=== PATIENT | female | born 1980 | race Caucasian/White ===

== ENCOUNTER 2022-12-05 06:47 | Emergency (ER) | payer MEDICAID, SELFPAY ==
[2022-12-05 06:56] VITALS: BP 113/78; PULSE 99; RESP 18; TEMP 36.4; O2SAT 100
--- NOTE | 2022-12-05 07:09 | W.ED.SKABFB ---
HPI - Skin/Abscess/Foreign Bdy General: Chief complaint: General Medical Stated complaint: congestion, nose swelling Time Seen by Provider: 12/05/22 07:00 Source: patient Mode of arrival: ambulatory Limitations: no limitations History of Present Illness: Patient is a nice 42-year-old female presents to ED today with complaints of redness and swelling to her nose over the past 1 to 2 days. Patient states a few days ago she began having some clear rhinorrhea that she attributed to allergies/sinusitis. She states she has been treating with steam showers. She noticed few sores to her bilateral inner nares. She states she was using a Q-tip to keep the nares moist. She believes that one of the source has become infected. She states yesterday morning she began noticing the redness and swelling. She denies headache or fevers. No visual changes. Denies purulent nasal drainage. MD complaint: rash, discoloration and other (nasal cellulitis ) Onset (ago): day(s) Tetanus up to date: yes Location: face (nose) Severity: mild Pain Consistency: constant Relieving factors: none Exacerbating factors: none Associated symptoms: Reports no associated symptoms; Deny chills, fever(s), nausea or vomiting Treatments prior to arrival: none Review of Systems Const: Denies: fever(s), chills, body aches, fatigue or malaise Eyes: Denies: change in vision, blurry vision, photophobia, floaters or seeing flashes ENMT: Reports: sinus pain (localized to nose); Denies: throat pain, odynophagia, ear or mastoid pain, epistaxis or post nasal drip Card: Denies: chest pain Resp: Denies: dyspnea GI: Denies: nausea or vomiting Musc: Denies: neck pain Neuro: Denies: headache(s), dizziness or confusion Physical Exam Const: COMMON NORMALS: no acute distress, average body habitus, patient oriented x3, no limitations, healthy appearing, alert and well nourished GENERAL APPEARANCE: cooperative ORIENTATION/CONSCIOUSNESS: Yes awake, Yes oriented to person, Yes oriented to place and Yes oriented to time HENMT: COMMON NORMALS: normocephalic and atraumatic HEAD & SCALP: normal to inspection, normocephalic and atraumatic FACE & SINUS: sinuses nontender and other (nasal swelling, tenderness, erythema consistent with cellulitis ) NOSE: Normal septum present and Other nasal findings present (bilateral scabbed sores to internal nares; cellulitis localized to nose) Eye: GENERAL EYE: appearance normal, both eyes and all related structures Neck/C-Spine: COMMON NORMALS: full ROM, no lymphadenopathy and no meningeal signs GENERAL: Yes normal visual inspection, No anterior neck swelling and No submandibular swelling Resp: COMMON NORMALS: normal respiratory effort Cardio: COMMON NORMALS: regular rate and regular rhythm RATE: regular rate RHYTHM: regular rhythm Neuro: LIU COMA SCALE: document GCS findings [place] coma scale eye opening: Spontaneous Liu coma scale verbal response: Orientated [place] coma scale motor response: Obey commands [place] coma scale total score: 15 COMMON NORMALS: patient oriented x3, CN's II-XII intact bilaterally, moves all extremities, no focal motor deficits and no sensory deficits noted SENSORIUM/ORIENTATION: Yes alert, Yes oriented to person, Yes oriented to place and Yes oriented to time MENINGEAL SIGNS: Yes no meningeal signs Course Vital Signs: Vital signs: Vital Signs Temperature 97.6 F 12/05/22 06:56 Pulse Rate 99 12/05/22 06:56 Respiratory Rate 18 12/05/22 06:56 Blood Pressure 113/78 12/05/22 06:56 Pulse Oximetry 100 12/05/22 06:56 Oxygen Delivery Me thod 12/05/22 06:56 MDM - Skin/Abscess/Foreign Bdy Medicial Decision Making Patient with mild nasal cellulitis at this time. Will place on oral abx and recommend close obs with PCP as location of infection has the potential for spread and rarely septic cavernous thrombosis. She has no DAVID/fevers/visual changes. Strict return to ED precautions given until she is able to see PCP. Discharge Plan Discharge Patient Disposition: Home Clinical Impression: Cellulitis of external nose Condition: Stable Prescriptions: New Bactrim DS 800-160 mg tablet 1 tab PO BID 7 Days Qty: 14 0RF Discharge Orders: Discharge ED (Routine); Ordered 12/05/22 Ordered By: Vickie Naranjo Referrals: Ksenia Oakes MOLD WASHER [Primary Care Provider] - Activity Restrictions/Additional Instructions: As we discussed fill your antibiotics and start them immediately. You need to follow-up with primary care early to mid this week for reevaluation. You need to return to the emergency department for worsening swelling, redness, severe headache, visual changes, fevers greater than 100.4, or any other concerns you may have. I hope you begin to feel better soon. Coding Level of Care Code ED Clinical Care Manager for Rebecca Monroe
[2022-12-05 07:49] VITALS: PULSE 86; RESP 16; O2SAT 100
== END 2022-12-05 07:50 | disposition home or self-care (01) ==
PROVIDERS: Emergency Provider Physician Assistant; PCP Nurse Practitioner Family
DX: J34.0 Abscess, furuncle and carbuncle of nose (principal)
CPT/HCPCS: 99283

== ENCOUNTER 2023-03-16 09:40 | Outpatient (CLI) | payer MEDICAID, SELFPAY ==
--- NOTE | 2023-03-16 10:12 | XRR_ITS ---
PROCEDURE INFORMATION: Exam: XR Thoracic Spine Exam date and time: 03/16/2023 10:17 AM Age: 42 years old Clinical indication: Pain in thoracic spine; Additional info: Back pain, thoracic region TECHNIQUE: Imaging protocol: Radiologic exam of the thoracic spine. Views: 3 views. COMPARISON: No relevant prior studies available. FINDINGS: Bones/joints: Thoracic curvature and alignment is unremarkable. No fracture or spondylolisthesis. Pedicles are intact. Disc heights are maintained. No significant degenerative changes detected. Soft tissues: Paraspinal soft tissues are unremarkable. XR/XR thoracic spine 3V* [id number] IMPRESSION: Normal thoracic spine.
== END 2023-03-16 09:41 | disposition home or self-care (01) ==
PROVIDERS: PCP Nurse Practitioner Family; Visit Provider Nurse Practitioner Family
DX: M54.6 Pain in thoracic spine (principal)
CPT/HCPCS: 72072

== ENCOUNTER 2023-06-29 14:01 | Emergency (ER) | payer MEDICAID, SELFPAY ==
[2023-06-29 14:24] VITALS: BP 111/67; PULSE 70; RESP 16; TEMP 36.8; O2SAT 100; BMI 17.6
[2023-06-29 14:27] VITALS: BP 104/68; PULSE 65; O2SAT 97
[2023-06-29 15:04] LABS: Basophils % 0.5 %; Eosinophils # 0.1 10^3/uL (0.0-0.8); Eosinophils % 1.1 %; Hematocrit 37.5 % (36-47); Lymphocytes # 2.1 10^3/uL (0.8-4.8); Lymphocytes % 32.5 %; Mean Corpuscular HGB Conc 33.3 g/dL (30-55); Mean Corpuscular Hemoglobin 30.9 pg (27-33); Mean Corpuscular Volume 92.6 fl (85-98); Mean Platelet Volume 10.8 fL (7.4-10.4); Monocytes # 0.5 10^3/uL (0.2-0.9); Neutrophils # 3.77 10^3/uL (1.8-7.7); Neutrophils % 58.6 %; Nucleated Red Blood Cells % 0 %; Platelet Count 161 10^3/cmm (157-399); Red Blood Count 4.05 10^6/uL (3.85-5.65); Red Cell Distribution Width 12.3 % (12.1-15.1); White Blood Count 6.43 10^3/uL (3.29-11.43)
--- NOTE | 2023-06-29 15:04 | ED_ITS ---
HPI - Female Genitourinary General: Chief complaint: Urogenital-Female Stated complaint: back pain left side Time Seen by Provider: 06/29/23 14:46 Source: patient Mode of arrival: ambulatory Limitations: no limitations History of Present Illness: Patient is a 43-year-old female presents to ED today with a complaint of left back pain and urinary symptoms. She states 2 to 3 days ago she began noticing fairly acute onset left flank pain. She states pain was unresponsive to OTC analgesics. She states since that time pain has not moved inferiorly and seems to wrap around into her abdomen. She now complains of urinary urgency/frequency and small volume voids. She states she does have a history of UTIs but has never had a kidney infection or kidney/ureter stone. She has not been running fevers. She has felt nauseous secondary to the pain but has not had any episodes of emesis. Normal bowel movements. MD elicited complaint: back pain Onset (ago): day(s) Severity: moderate Quality of pain: sharp Consistency: constant Vaginal discharge: none Vaginal bleeding: none Urinary symptoms: Flank Pain and Frequency Exacerbating factors: none Relieving factors: none Associated symptoms: Reports nausea; Deny abdominal pain or headache(s) Treatment prior to arrival: none Patient : No Review of Systems Const: Denies: fever(s), chills, body aches, fatigue or malaise Card: Denies: chest pain Resp: Denies: dyspnea GI: Reports: nausea; Denies: abdominal pain, vomiting, diarrhea, hematochezia or melena : Reports: flank pain, urinary frequency, urinary urgency and urinary hesitancy; Denies: difficulty voiding, dysuria, hematuria or pelvic pain Musc: Reports: back pain (L flank pain); Denies: neck pain, extremity pain, extremity swelling or joint pain Skin/Breast: Denies: rash Neuro: Denies: headache(s), numbness in extremities, weakness in extremities, sensory changes or dizziness Physical Exam Const: COMMON NORMALS: no acute distress, patient oriented x3, no limitations, alert and well nourished GENERAL APPEARANCE: cooperative NUTRITIONAL APPEARANCE: thin ORIENTATION/CONSCIOUSNESS: Yes awake, Yes oriented to person, Yes oriented to place and Yes oriented to time Resp: COMMON NORMALS: normal respiratory effort and clear to auscultation bilaterally AUSCULTATION: clear to auscultation bilaterally Cardio: COMMON NORMALS: regular rate and regular rhythm RATE: regular rate RHYTHM: regular rhythm GI: COMMON NORMALS: Normal to inspection, nondistended, normoactive bowel sounds present, Soft to palpation, No hepatosplenomegaly present and no masses INSPECTION: Yes normal to inspection PALPATION: Yes Soft to palpation, Yes Tenderness to palpation present (GI) (mild L sided abdominal pain), No Guarding due to palpation present (GI), No Rigid due to palpation and Yes No hepatosplenomegaly present : BLADDER/KIDNEY EXAM: Yes CVA tenderness on the left Back/Pelvis: COMMON NORMALS: thoracic and lumbar spine normal to inspection, no thoracic nor lumbar tenderness and thoraco-lumbar ROM normal GENERAL BACK: Yes CVA tenderness Extremity: COMMON NORMALS: normal to inspection GENERAL: Yes normal exam except as noted Neuro: LIU COMA SCALE: document GCS findings [place] coma scale eye opening: Spontaneous [place] coma scale verbal response: Orientated [place] coma scale motor response: Obey commands [place] coma scale total score: 15 COMMON NORMALS: patient oriented x3, moves all extremities, no focal motor deficits and no sensory deficits noted SENSORIUM/ORIENTATION: Yes alert, Yes oriented to person, Yes oriented to place and Yes oriented to time Skin: TRAUMA: no lacerations or abrasions Course Vital Signs: Vital signs: Vital Signs Temperature 98.3 F 06/29/23 14:24 Pulse Rate 55 L 06/29/23 17:08 Respiratory Rate 16 06/29/23 14:24 Blood Pressure 118/70 06/29/23 17:08 Pulse Oximetry 98 06/29/23 17:08 Oxygen Delivery Me thod Room Air 06/29/23 14:24 MDM - Female Medical Decision Making Based on patient's history and physical exam I suspect possible ureter calculi although I guess pyelo could be a possibility. CT renal scan obtained which is essentially normal. Personal interpretation does show a small calculi in her bladder which I feel she most likely recently passed. Her vital signs are stable. Blood work is unremarkable. UA showing 2+ blood. Somewhat contaminated specimen. Will go ahead and place on abx for possibility of a hemorrhagic cystitis. Recommend follow up with PCP later this week for re- evaluation. Lab Data 06/29/23 14:55 06/29/23 14:55 Radiology Impressions Abdomen/Pelvis CT 06/29/23 16:09 IMPRESSION: 1. Limited noncontrast examination without CT evidence of acute intra-abdominal or pelvic pathology. 2. Additional findings, as above. Laboratory Results WBC 6.43 10^3/uL (3.29-11.43) 06/29/23 14:55 RBC 4.05 10^6/uL (3.85-5.65) 06/29/23 14:55 Hgb 12.50 g/dL (11.27-16.99) 06/29/23 14:55 Hct 37.5 % (36-47) 06/29/23 14:55 MCV 92.6 fl (85-98) 06/29/23 14:55 MCH 30.9 pg (27-33) 06/29/23 14:55 MCHC 33.3 g/dL (30-55) 06/29/23 14:55 RDW 12.3 % (12.1-15.1) 06/29/23 14:55 Plt Count 161 10^3/cmm (157-399) 06/29/23 14:55 MPV 10.8 fL (7.4-10.4) H 06/29/23 14:55 Neut % (Auto) 58.6 % 06/29/23 14:55 Lymph % (Auto) 32.5 % 06/29/23 14:55 [place] % (Auto) 7.0 % 06/29/23 14:55 Eos % (Auto) 1.1 % 06/29/23 14:55 Baso % (Auto) 0.5 % 06/29/23 14:55 Neut # (Auto) 3.77 10^3/uL (1.8-7.7) 06/29/23 14:55 Lymph # (Auto) 2.1 10^3/uL (0.8-4.8) 06/29/23 14:55 [place] # (Auto) 0.5 10^3/uL (0.2-0.9) 06/29/23 14:55 Eos # (Auto) 0.1 10^3/uL (0.0-0.8) 06/29/23 14:55 Baso # (Auto) 0.0 10^3/uL (0.0-0.1) 06/29/23 14:55 Nucleated RBC % (auto) 0 % 06/29/23 14:55 Nucleated RBCs # 0.0 /100WBC 06/29/23 14:55 Sodium 139 mmol/L (136-145) 06/29/23 14:55 Potassium 3.7 mmol/L (3.5-5.1) 06/29/23 14:55 Chloride 105 mmol/L (98-107) 06/29/23 14:55 Carbon Dioxide 29 mmol/L (22-29) 06/29/23 14:55 Anion Gap 8.7 (5-19) 06/29/23 14:55 BUN 8 mg/dL (6-20) 06/29/23 14:55 Creatinine 0.6 mg/dL (0.5-0.9) 06/29/23 14:55 GFR Calculation 109.1 mL/min (90-130) 06/29/23 14:55 Glucose 77 mg/dL (65-115) 06/29/23 14:55 Calculated Osmolality 285 mOsm/kg (285-295) 06/29/23 14:55 Calcium 9.0 mg/dL (8.5-10.5) 06/29/23 14:55 Total Bilirubin 0.3 mg/dL (0.15-1.2) 06/29/23 14:55 AST 13 U/L (0-32) 06/29/23 14:55 ALT 8 U/L (0-33) 06/29/23 14:55 Alkaline Phosphatase 50 U/L (35-105) 06/29/23 14:55 Total Protein 6.1 g/dL (6.6-8.7) L 06/29/23 14:55 Albumin 4.2 g/dL (3.5-5.2) 06/29/23 14:55 Globulin 1.9 g/dL (1.3-4.6) 06/29/23 14:55 HCG, Qual Negative (Negative) 06/29/23 14:55 Urine Color Light yellow (Yellow) 06/29/23 14:30 Urine Appearance Clear (CLEAR) 06/29/23 14:30 Urine pH 7 (5-7) 06/29/23 14:30 Ur Specific [place] 1.010 (1.005-1.030) 06/29/23 14:30 Urine Protein Neg (Negative) 06/29/23 14:30 Urine Glucose (UA) Norm (Normal) 06/29/23 14:30 Urine Ketones Negative (Negative) 06/29/23 14:30 Urine Blood 2+ (Negative) H 06/29/23 14:30 Urine Nitrate Negative (Negative) 06/29/23 14:30 Urine Bilirubin Neg (Negative) 06/29/23 14:30 Urine Urobilinogen Norm mg/dL (Negative) 06/29/23 14:30 Ur Leukocyte Esterase Negative (Negative) 06/29/23 14:30 Urine RBC 0-4 /hpf (0-2) H 06/29/23 14:30 Urine WBC 0-4 /hpf (0-5) H 06/29/23 14:30 Ur Squamous Epith Cells 5-10 /hpf (0-5) H 06/29/23 14:30 Amorphous Sediment Not Reportable 06/29/23 14:30 Urine Bacteria Trace /hpf (NONE) 06/29/23 14:30 Urine Mucus None /hpf 06/29/23 14:30 All radiology interpretation(s) finalized by discharge Discharge Plan Discharge Patient Disposition: Home Clinical Impression: Left ureteral stone Condition: Stable Prescriptions: New Bactrim DS 800-160 mg tablet 1 tab PO BID 7 Days Qty: 14 0RF No Action ibuprofen 200 mg Capsule 400 mg PO Q6H PRN (Reason: Pain) Aleve 220 mg Capsule 440 mg PO DAILY PRN (Reason: Pain) Discharge Orders: Discharge ED (Routine); Ordered 06/29/23 Ordered By: Vickie Naranjo Referrals: Ksenia Oakes FNP [Primary Care Provider] - Coding Level of Care Code ED Network Planner for Rebecca Monroe
[2023-06-29] MEDS: ondansetron 2 mg/ML SDV 2 mL 4 MG IVP (15:20)
[2023-06-29] MEDS: ketorolac 60 mg/2 mL INJ 30 MG IVP (15:20)
[2023-06-29 15:25] LABS: HCG, Serum Qual Negative (Negative)
[2023-06-29 15:29] LABS: Alanine Aminotransferase 8 U/L (0-33); Albumin Level 4.2 g/dL (3.5-5.2); Alkaline Phosphatase 50 U/L (35-105); Anion Gap 8.7 (5-19); Aspartate Amino Transferase 13 U/L (0-32); Blood Urea Nitrogen 8 mg/dL (6-20); Carbon Dioxide 29 mmol/L (22-29); Chloride 105 mmol/L (98-107); Globulin 1.9 g/dL (1.3-4.6); Glomerular Filtration Rate 109.1 mL/min (90-130); Glucose 77 mg/dL (65-115); Osmolality Calculated 285 mOsm/kg (285-295); Potassium 3.7 mmol/L (3.5-5.1); Sodium 139 mmol/L (136-145); Total Bilirubin 0.3 mg/dL (0.15-1.2); Total Protein 6.1 g/dL (6.6-8.7)
[2023-06-29 16:05] LABS: Add Urine Microscopic? YES; Bilirubin Urine Neg (Negative); Blood Urine 2+ (Negative); Glucose Urine UA Norm (Normal); Ketones Urine Negative (Negative); Leukocyte Esterase Urine Negative (Negative); Nitrate Urine Negative (Negative); Protein Urine Neg (Negative); Urine Appearance Clear (CLEAR); Urine Color Light yellow (Yellow); Urobilinogen Urine Norm (Negative); pH Urine 7 (5-7)
--- NOTE | 2023-06-29 16:09 | CTR_ITS ---
PROCEDURE INFORMATION: Exam: CT Abdomen And Pelvis Without Contrast Exam date and time: 06/29/2023 4:20 PM Age: 43 years old Clinical indication: Abdominal pain; Flank; Left; Prior surgery; Surgery date: 6+ months; Surgery type: Appy, gb, hyst; Additional info: L flank pain, urinary symptoms TECHNIQUE: Imaging protocol: Computed tomography of the abdomen and pelvis without contrast. Axial, coronal and sagittal reformatted images were created and reviewed. REPORTING DATA: Count of CT and Cardiac NM exams in prior 12 months: This patient has received 0 known CTs and 0 known cardiac nuclear medicine studies in the 12 months prior to the current study. COMPARISON: CR XR thoracic spine 3V* [id number] 03/16/2023 10:17 AM RADIATION DOSE METRICS: Total DLP (mGy-cm): 335 FINDINGS: Liver: Unremarkable. Gallbladder and bile ducts: Status post cholecystectomy. No biliary ductal dilatation. Pancreas: Unremarkable. Spleen: Unremarkable. Adrenal glands: Normal. No mass. Kidneys and ureters: No mass. No radiodense calculi. No hydronephrosis. Stomach and bowel: Moderate amount of retained stool in the colon. No obstruction. No bowel wall thickening. No pneumatosis. Appendix: Status post appendectomy by history. Intraperitoneal space: No free fluid. No organized fluid collection. No free air. Vasculature: Mild atherosclerotic disease. No aneurysm. Lymph nodes: No pathologically enlarged lymph nodes. Urinary bladder: Unremarkable as visualized. Reproductive: Status post hysterectomy. Bones/joints: No acute osseous abnormality. Soft tissues: Unremarkable. CT/CT kidney stone [id number] IMPRESSION: 1. Limited noncontrast examination without CT evidence of acute intra-abdominal or pelvic pathology. 2. Additional findings, as above.
[2023-06-29 16:10] LABS: Add Urine Culture? No; Bacteria Urine TRACE /hpf; RBC Urine 0-4 /hpf (0-2); WBC Urine 0-4 /hpf (0-5)
[2023-06-29 17:08] VITALS: BP 118/70; PULSE 55; O2SAT 98
== END 2023-06-29 17:09 | disposition home or self-care (01) ==
PROVIDERS: Emergency Medicine; Emergency Provider Physician Assistant; PCP Nurse Practitioner Family
DX: N20.1 Calculus of ureter (principal)
CPT/HCPCS: 36415; 74176; 80053; 81001; 84703; 85025; 96374; 96375; 99285; J1885; J2405

== ENCOUNTER → 2023-08-19 09:39 | Outpatient (BNVA) | payer MEDICAID, SELFPAY | PROVIDERS: PCP Nurse Practitioner Family; Visit Provider Nurse Practitioner Family | DX: M54.9 Dorsalgia, unspecified (principal) | CPT/HCPCS: 81000 ==

== ENCOUNTER 2023-12-05 17:07 | Emergency (ER) | payer MEDICAID, SELFPAY ==
--- NOTE | 2023-12-05 17:09 | XRR_ITS ---
PROCEDURE INFORMATION: Exam: XR Chest Exam date and time: 12/05/2023 5:36 PM Age: 43 years old Clinical indication: Pain; Chest pressure; Additional info: Cp TECHNIQUE: Imaging protocol: Radiologic exam of the chest. Views: 1 view. COMPARISON: CT kidney stone [id number] 06/29/2023 4:20 PM FINDINGS: Lungs: No focal consolidation. Left basilar airspace opacities raising the question of developing pneumonia. There is an 18 mm nodular opacity in this region, possibly a nipple shadow. Pleural spaces: No evidence of pneumothorax. No evidence of pleural effusion. Heart/Mediastinum: Cardiomediastinal silhouette is within normal limits. Bones/joints: No evidence of acute osseous abnormality. XR/XR chest 1V portable [id number] IMPRESSION: 1. Left basilar airspace opacities raising the question of developing pneumonia. 2. 18 mm nodular opacity in this region, possibly a nipple shadow. Consider correlation with CT to exclude a pulmonary nodule.
--- NOTE | 2023-12-05 17:10 | ECG_ITS ---
[facility] Test Date: 2023-12-05 Pat Name: Carol Lopez Department: Room: Gender: Female Form Builder Helper: : [id number] Requested By: Jf Chavarria Order Number: [id number] Rita MD: Igor Armas M.D. Measurements Intervals [place] Rate: 108 P: 79 [place]: 137 QRS: -89 QRSD: 98 T: 73 QT: 315 QTc: 423 Interpretive Statements SINUS TACHYCARDIA INDETERMINATE AXIS INCOMPLETE RIGHT BUNDLE BRANCH BLOCK [90+ ms QRS DURATION, TERMINAL R IN V1/V2, 40+ ms S IN I/aVL/V4/V5/V6] No previous ECG available for comparison Electronically Signed On 12-05-2023 18:55:53 CDT by Igor Armas M.D. [id number] f
[2023-12-05 17:27] VITALS: BP 115/77; PULSE 89; RESP 18; TEMP 37.5; O2SAT 98; BMI 17.5
[2023-12-05 17:54] LABS: Basophils % 0.2 %; Eosinophils # 0.1 10^3/uL (0.0-0.8); Eosinophils % 0.4 %; Hematocrit 38.3 % (36-47); Lymphocytes # 1.5 10^3/uL (0.8-4.8); Lymphocytes % 11.4 %; Mean Corpuscular HGB Conc 34.5 g/dL (30-55); Mean Corpuscular Hemoglobin 31.1 pg (27-33); Mean Corpuscular Volume 90.3 fl (85-98); Mean Platelet Volume 10.5 fL (7.4-10.4); Monocytes # 0.8 10^3/uL (0.2-0.9); Monocytes % 6.3 %; Neutrophils # 10.81 10^3/uL (1.8-7.7); Neutrophils % 81.2 %; Nucleated Red Blood Cells % 0 %; Platelet Count 190 10^3/cmm (157-399); Red Blood Count 4.24 10^6/uL (3.85-5.65); Red Cell Distribution Width 11.9 % (12.1-15.1); White Blood Count 13.31 10^3/uL (3.29-11.43)
[2023-12-05 18:12] LABS: Alanine Aminotransferase 6 U/L (0-33); Albumin Level 4.2 g/dL (3.5-5.2); Alkaline Phosphatase 76 U/L (35-105); Anion Gap 14.5 (5-19); Aspartate Amino Transferase 11 U/L (0-32); Blood Urea Nitrogen 6 mg/dL (6-20); Carbon Dioxide 23 mmol/L (22-29); Chloride 104 mmol/L (98-107); Creatinine Clr Calc Pharmacy 109.0802; Globulin 3.2 g/dL (1.3-4.6); Glomerular Filtration Rate 109.1 mL/min (90-130); Glucose 113 mg/dL (65-115); Lipase 16 U/L (13-60); Osmolality Calculated 284 mOsm/kg (285-295); Potassium 3.5 mmol/L (3.5-5.1); Sodium 138 mmol/L (136-145); Total Bilirubin 0.5 mg/dL (0.15-1.2); Total Protein 7.4 g/dL (6.6-8.7)
[2023-12-05 18:14] LABS: Troponin(5th) Baseline < 6 ng/L (0-10)
--- NOTE | 2023-12-05 18:15 | W.ED.CHESTPA ---
HPI - Chest Pain General: Chief Complaint: Chest Pain Stated Complaint: chest pain Time Seen by Provider: 12/05/23 17:13 History of Present Illness: Presents to the ER complaining of left lateral chest wall pain underneath her breast. Patient states that she has been sick with cough and congestion for the last several days. Patient said it started hurting a couple days ago she think she is coughed too much however now it hurts to move, take big deep breath, lie down, and has been getting worse all throughout the day. Patient has been taking some ibuprofen throughout the day and it seemed to help some. Patient did take some home COVID tests they were negative but she thinks they may have been . Patient denies any fever or chills. Review of Systems General: Reports: 10 or more systems reviewed and unremarkable except in HPI and below Physical Exam Const: COMMON NORMALS: no acute distress, average body habitus, patient oriented x3, no limitations, healthy appearing, alert and well nourished HENMT: COMMON NORMALS: normocephalic, atraumatic, hearing grossly normal bilaterally, external ears normal, Normal external nose present, moist oral mucous membranes and oropharynx normal HEAD & SCALP: normocephalic and atraumatic NOSE: Normal external nose present EXTERNAL EAR: Yes external ears normal Neck/C-Spine: COMMON NORMALS: no JVD Chest: COMMONS NORMALS: normal inspection of the chest; negative for normal palpation of entire chest wall (Tender to palpate left anterior lateral chest wall under breast) Resp: COMMON NORMALS: normal respiratory effort, No retractions, No use of accessory muscles and clear to auscultation bilaterally AUSCULTATION: clear to auscultation bilaterally Cardio: COMMON NORMALS: no JVD, regular rate, regular rhythm, S1 normal heart sound present, S2 normal heart sound present, No gallops present (Cardio), No clicks present (Cardio), No murmurs present (Cardio) and No rub (Cardio) RATE: regular rate RHYTHM: regular rhythm HEART SOUNDS: S1 normal heart sound present and S2 normal heart sound present GI: COMMON NORMALS: Normal to inspection, nondistended, normoactive bowel sounds present, Soft to palpation, non-tender, No hepatosplenomegaly present and no masses PALPATION: Yes Soft to palpation and Yes No hepatosplenomegaly present Neuro: COMMON NORMALS: patient oriented x3 SENSORIUM/ORIENTATION: Yes alert Course Vital Signs: Vital signs: Vital Signs Temperature 99.5 F 12/05/23 17:27 Pulse Rate 89 12/05/23 17:27 Respiratory Rate 18 12/05/23 17:27 Blood Pressure 115/77 12/05/23 17:27 Pulse Oximetry 98 12/05/23 17:27 Oxygen Delivery Me thod Room Air 12/05/23 17:27 MDM - Chest Pain Medical Decision Making Patient lab work and chest x-ray. Chest x-ray showed left basilar pneumonia, no white count was 13,000 influenza and COVID-negative. Patient was given Tessalon Perles and Omnicef in the ER and will be discharged on the same. Patient should follow-up with her PCP within about 7 days. Differential Diagnosis Unlikely acute massive pulmonary embolism, acute respiratory failure, acute myocardial infarction, cardiac arrest or sudden cardiac Medical Records I reviewed the patient's medical records. Lab Data I reviewed the patient's lab results. 12/05/23 17:46 12/05/23 17:46 Radiology Impressions Chest X-Ray 12/05/23 17:09 IMPRESSION: 1. Left basilar airspace opacities raising the question of developing pneumonia. 2. 18 mm nodular opacity in this region, possibly a nipple shadow. Consider correlation with CT to exclude a pulmonary nodule. Laboratory Results WBC 13.31 10^3/uL (3.29-11.43) H 12/05/23 17:46 RBC 4.24 10^6/uL (3.85-5.65) 12/05/23 17:46 Hgb 13.20 g/dL (11.27-16.99) 12/05/23 17:46 Hct 38.3 % (36-47) 12/05/23 17:46 MCV 90.3 fl (85-98) 12/05/23 17:46 MCH 31.1 pg (27-33) 12/05/23 17:46 MCHC 34.5 g/dL (30-55) 12/05/23 17:46 RDW 11.9 % (12.1-15.1) L 12/05/23 17:46 Plt Count 190 10^3/cmm (157-399) 12/05/23 17:46 MPV 10.5 fL (7.4-10.4) H 12/05/23 17:46 Neut % (Auto) 81.2 % 12/05/23 17:46 Lymph % (Auto) 11.4 % 12/05/23 17:46 [place] % (Auto) 6.3 % 12/05/23 17:46 Eos % (Auto) 0.4 % 12/05/23 17:46 Baso % (Auto) 0.2 % 12/05/23 17:46 Neut # (Auto) 10.81 10^3/uL (1.8-7.7) H 12/05/23 17:46 Lymph # (Auto) 1.5 10^3/uL (0.8-4.8) 12/05/23 17:46 [place] # (Auto) 0.8 10^3/uL (0.2-0.9) 12/05/23 17:46 Eos # (Auto) 0.1 10^3/uL (0.0-0.8) 12/05/23 17:46 Baso # (Auto) 0.0 10^3/uL (0.0-0.1) 12/05/23 17:46 Nucleated RBC % (auto) 0 % 12/05/23 17:46 Nucleated RBCs # 0.0 /100WBC 12/05/23 17:46 Sodium 138 mmol/L (136-145) 12/05/23 17:46 Potassium 3.5 mmol/L (3.5-5.1) 12/05/23 17:46 Chloride 104 mmol/L (98-107) 12/05/23 17:46 Carbon Dioxide 23 mmol/L (22-29) 12/05/23 17:46 Anion Gap 14.5 (5-19) 12/05/23 17:46 BUN 6 mg/dL (6-20) 12/05/23 17:46 Creatinine 0.6 mg/dL (0.5-0.9) 12/05/23 17:46 GFR Calculation 109.1 mL/min (90-130) 12/05/23 17:46 Glucose 113 mg/dL (65-115) 12/05/23 17:46 Calculated Osmolality 284 mOsm/kg (285-295) L 12/05/23 17:46 Calcium 9.0 mg/dL (8.5-10.5) 12/05/23 17:46 Total Bilirubin 0.5 mg/dL (0.15-1.2) 12/05/23 17:46 AST 11 U/L (0-32) 12/05/23 17:46 ALT 6 U/L (0-33) 12/05/23 17:46 Alkaline Phosphatase 76 U/L (35-105) 12/05/23 17:46 Troponin T Baseline < 6 ng/L (0-10) 12/05/23 17:46 Troponin T 120 Minute 6.00 ng/L (0-10) 12/05/23 19:10 Delta Troponin T 0.12374 ABS# (0-10) 12/05/23 19:10 Total Protein 7.4 g/dL (6.6-8.7) 12/05/23 17:46 Albumin 4.2 g/dL (3.5-5.2) 12/05/23 17:46 Globulin 3.2 g/dL (1.3-4.6) 12/05/23 17:46 Lipase 16 U/L (13-60) 12/05/23 17:46 Influenza Type A Ag negative (Negative) 12/05/23 19:06 Influenza Type B Ag negative (Negative) 12/05/23 19:06 SARS-CoV-2 Ag (Rapid) negative (Negative) 12/05/23 19:06 All radiology interpretation(s) finalized by discharge Discharge Plan Discharge Patient Disposition: Home Clinical Impression: Left lower lobe pneumonia Qualifiers: Pneumonia type: due to unspecified organism Qualified Code(s): J18.9 - Pneumonia, unspecified organism Condition: Stable Prescriptions: New benzonatate 100 mg capsule 100 mg PO TID PRN (Reason: cough) Qty: 30 0RF cefdinir 300 mg capsule 300 mg PO BID 10 Days Qty: 20 0RF Discontinued sulfamethoxazole-trimethoprim [Bactrim DS] 800-160 mg tablet 1 tab PO BID 5 Days Qty: 10 0RF No Action ibuprofen 200 mg Capsule 400 mg PO Q6H PRN (Reason: Pain) Aleve 220 mg Capsule 440 mg PO DAILY PRN (Reason: Pain) Discharge Orders: Discharge ED (Routine); Ordered 12/05/23 Ordered By: Jf Chavarria Referrals: Ksenia Oakes TRACK WORKER [Primary Care Provider] - 1 week Patient Instructions: Pneumonia - Bacterial Activity Restrictions/Additional Instructions: Please take all your antibiotics till finished. Please take your cough medicine as needed as directed. Please follow-up with your family practitioner in the next 7 days for further evaluation and treatment as needed. Coding Level of Care Code ED Global Director Air And Climate Change for Rebecca Monroe
[2023-12-05] MEDS: ketorolac 30 mg/mL INJ IVP (19:03)
--- NOTE | 2023-12-05 19:25 | ECG_ITS ---
[facility] Test Date: 2023-12-05 Pat Name: Carol Lopez Department: Room: Gender: Female Desktop Publishing Operator: : 1980 Requested By: Nathalia Judd Order Number: [id number] Rita MD: Igor Armas M.D. Measurements Intervals [place] Rate: 67 P: 74 NV: 154 QRS: -65 QRSD: 99 T: 77 QT: 384 QTc: 407 Interpretive Statements SINUS RHYTHM INDETERMINATE AXIS INCOMPLETE RIGHT BUNDLE BRANCH BLOCK [90+ ms QRS DURATION, TERMINAL R IN V1/V2, 40+ ms S IN I/aVL/V4/V5/V6] ANTEROSEPTAL MYOCARDIAL INFARCTION , OF INDETERMINATE AGE [40+ ms Q WAVE IN V1-V4] Compared to ECG 12/05/2023 17:10:36 Myocardial infarct finding now present Sinus tachycardia no longer present Electronically Signed On 12-06-2023 16:31:49 CDT by Igor Armas M.D. [id number]
[2023-12-05 19:28] LABS: Influenza A by IFA negative (Negative); Influenza B by IFA negative (Negative); SARS Covid-2 Antigen negative (Negative)
[2023-12-05 19:37] LABS: Troponin 5 2HR Delta 0.00001 ABS# (0-10)
[2023-12-05] MEDS: cefdinir 300 MG CAPSULE PO (19:45)
[2023-12-05] MEDS: benzonatate 100 mg Capsule 200 MG PO (19:45)
[2023-12-05 19:52] VITALS: BP 119/71; PULSE 76; RESP 16; O2SAT 99
== END 2023-12-05 19:55 | disposition home or self-care (01) ==
PROVIDERS: Emergency Medicine; Emergency Provider Emergency Medicine; PCP Nurse Practitioner Family
DX: J18.9 Pneumonia, unspecified organism (principal); Z11.52 Encounter for screening for COVID-19
CPT/HCPCS: 36415; 71045; 80053; 83690; 84484; 85025; 87426; 87804; 93005; 96374; 99285; J1885

== ENCOUNTER 2024-07-06 06:55 | Emergency (ER) | payer MEDICAID, SELFPAY ==
--- NOTE | 2024-07-06 07:03 | XRR_ITS ---
PROCEDURE INFORMATION: Exam: XR Chest Exam date and time: 07/06/2024 7:10 AM Age: 44 years old Clinical indication: Shortness of breath; Additional info: SOB TECHNIQUE: Imaging protocol: Radiologic exam of the chest. Views: 1 view. COMPARISON: CR XR chest 1V portable [id number] 12/05/2023 5:36 PM FINDINGS: Lungs: The lungs are hyperinflated. No definite consolidation is appreciated. Pleural spaces: Unremarkable. No pleural effusion. No pneumothorax. Heart/Mediastinum: Unremarkable. No cardiomegaly. Bones/joints: Unremarkable. XR/XR chest 1V portable [id number] IMPRESSION: Lung hyperinflation.
--- NOTE | 2024-07-06 07:07 | ECG_ITS ---
[facility] 2024[facility]06 Pat Name: Carol Lopez Department: Room: Gender: Female Customer Service Dispatcher: : 1980 Requested By: Nathalia Judd Order Number: [id number] Rita MD: Rosa Shaffer M.D. Measurements Intervals [place] Rate: 67 P: 78 MS: 144 QRS: -89 QRSD: 102 T: 73 QT: 393 QTc: 415 Interpretive Statements SINUS RHYTHM WITH SINUS ARRHYTHMIA LEFT AXIS DEVIATION [QRS AXIS < -30] INCOMPLETE RIGHT BUNDLE BRANCH BLOCK [90+ ms QRS DURATION, TERMINAL R IN V1/V2, 40+ ms S IN I/aVL/V4/V5/V6] Compared to ECG 12/05/2023 19:25:23 Left-axis deviation now present Electronically Signed On 07-06-2024 12:14:27 CDT by Rosa Shaffer M.D. [id number]
--- NOTE | 2024-07-06 07:11 | ED_ITS ---
HPI - General Adult 2 General: Chief complaint: COVID symptoms Stated complaint: SOB, coughing body ache Time Seen by Provider: 07/06/24 07:04 Source: patient Mode of arrival: ambulatory Limitations: no limitations History of Present Illness: 44-year-old female states that she has b een having bodyaches cough fevers has been going on for over a week. She states she was diagnosed with a sinus infection is finished antibiotics states she is still having the symptoms. Patient's vitals here are normal she denies any vomiting or diarrhea denies any abdominal pain. Associated symptoms: Deny chest pain, dyspnea, headache(s), nausea, rash or vomiting Related Data Home Medications Medication Instructions Recorded Confirmed ibuprofen 125 mg-acetaminophen 250 1 tab PO Q8H PRN Pain 07/06/24 07/06/24 mg tablet (Advil Dual Action) Previous Rx's Medication Instructions Recorded amoxicillin 875 mg-potassium 1 tab PO BID 7 days #14 tabs 06/26/24 clavulanate 125 mg tablet Allergies Allergy/AdvReac Type Severity Reaction Status Date / Time morphine Allergy ADR-Itching Verified 06/26/24 09:50 Review of Systems 2 Const: Reports: fever(s), chills and body aches; Denies: change in appetite Eyes: Denies: blurry vision or eye discomfort ENMT: Denies: throat pain or dental pain Card: Denies: chest pain Resp: Reports: non-productive cough; Denies: dyspnea GI: Denies: abdominal pain, nausea, vomiting or diarrhea : Denies: dysuria Musc: Denies: neck pain or back pain Skin/Breast: Denies: rash Neuro: Denies: headache(s) PFS ED 2 PFSH: Social History Smoking and tobacco/nicotine status: unknown if used tobacco/nicotine Physical Exam 2 Const: COMMON NORMALS: no acute distress, patient oriented x3 and healthy appearing HENMT: COMMON NORMALS: normocephalic and atraumatic HEAD & SCALP: n ormocephalic and atraumatic Eye: COMMON NORMALS: conjunctivae normal CONJUNCTIVA: Yes conjunctivae normal Neck/C-Spine: COMMON NORMALS: full ROM and supple Chest: COMMONS NORMALS: normal inspection of the chest and normal palpation of entire chest wall Resp: COMMON NORMALS: normal respiratory effort, No retractions, No use of accessory muscles and clear to auscultation bilaterally AUSCULTATION: clear to auscultation bilaterally Cardio: COMMON NORMALS: regular rate, regular rhythm and No murmurs present (Cardio) RATE: regular rate RHYTHM: regular rhythm GI: COMMON NORMALS: Normal to inspection, nondistended, normoactive bowel sounds present, Soft to palpation, non-tender and no masses PALPATION: Yes Soft to palpation Extremity: COMMON NORMALS: normal to inspection and full ROM Neuro: COMMON NORMALS: patient oriented x3, moves all extremities and no focal motor deficits Psych: COMMON NORMALS: mental status grossly normal, Normal thought process present and cooperative THOUGHT PROCESS: Normal thought process present Skin: COMMON NORMALS: no rashes or lesions noted and no wounds GENERAL SKIN EXAM: no rashes or lesions noted Course 2 Vital Signs: Vital signs: Vital Signs Temperature 98.0 F 07/06/24 07:15 Pulse Rate 73 07/06/24 07:15 Respiratory Rate 16 07/06/24 07:15 Blood Pressure 108/78 07/06/24 07:15 Pulse Oximetry 97 07/06/24 07:22 Oxygen Delivery Me thod Room Air 07/06/24 07:22 MDM - General Adult Medical Decision Making Patient presents with cough congestion likely upper respiratory infection she is well-appearing here x-rays negative did give her Decadron along with inhaler she is to follow-up with her PCP and return if worsening. Medical Records I reviewed the patient's medical records. Lab Data I reviewed the patient's lab results. 07/06/24 07:20 07/06/24 07:20 Radiology Impressions Chest X-Ray 07/06/24 07:03 IMPRESSION: Lung hyperinflation. Laboratory Results WBC 12.09 10^3/uL (3.29-11.43) H 07/06/24 07:20 RBC 4.27 10^6/uL (3.85-5.65) 07/06/24 07:20 Hgb 13.50 g/dL (11.27-16.99) 07/06/24 07:20 Hct 40.4 % (36-47) 07/06/24 07:20 MCV 94.6 fl (85-98) 07/06/24 07:20 MCH 31.6 pg (27-33) 07/06/24 07:20 MCHC 33.4 g/dL (30-55) 07/06/24 07:20 RDW 11.9 % (12.1-15.1) L 07/06/24 07:20 Plt Count 241 10^3/cmm (157-399) 07/06/24 07:20 MPV 9.9 fL (7.4-10.4) 07/06/24 07:20 Neut % (Auto) 81.4 % 07/06/24 07:20 Lymph % (Auto) 11.8 % 07/06/24 07:20 [place] % (Auto) 5.7 % 07/06/24 07:20 Eos % (Auto) 0.3 % 07/06/24 07:20 Baso % (Auto) 0.2 % 07/06/24 07:20 Neut # (Auto) 9.84 10^3/uL (1.8-7.7) H 07/06/24 07:20 Lymph # (Auto) 1.4 10^3/uL (0.8-4.8) 07/06/24 07:20 [place] # (Auto) 0.7 10^3/uL (0.2-0.9) 07/06/24 07:20 Eos # (Auto) 0.0 10^3/uL (0.0-0.8) 07/06/24 07:20 Baso # (Auto) 0.0 10^3/uL (0.0-0.1) 07/06/24 07:20 Nucleated RBC % (auto) 0 % 07/06/24 07:20 Nucleated RBCs # 0.0 /100WBC 07/06/24 07:20 Sodium 136 mmol/L (136-145) 07/06/24 07:20 Potassium 3.3 mmol/L (3.5-5.1) L 07/06/24 07:20 Chloride 101 mmol/L (98-107) 07/06/24 07:20 Carbon Dioxide 24 mmol/L (22-29) 07/06/24 07:20 Anion Gap 14.3 (5-19) 07/06/24 07:20 BUN 7 mg/dL (6-20) 07/06/24 07:20 Creatinine 0.7 mg/dL (0.5-0.9) 07/06/24 07:20 GFR Calculation 90.9 mL/min (90-130) 07/06/24 07:20 Glucose 138 mg/dL (65-115) H 07/06/24 07:20 Calculated Osmolality 282 mOsm/kg (285-295) L 07/06/24 07:20 Calcium 8.2 mg/dL (8.5-10.5) L 07/06/24 07:20 Total Bilirubin 0.5 mg/dL (0.15-1.2) 07/06/24 07:20 AST 11 U/L (0-32) 07/06/24 07:20 ALT 7 U/L (0-33) 07/06/24 07:20 Alkaline Phosphatase 94 U/L (35-105) 07/06/24 07:20 Total Protein 7.3 g/dL (6.6-8.7) 07/06/24 07:20 Albumin 4.2 g/dL (3.5-5.2) 07/06/24 07:20 Globulin 3.1 g/dL (1.3-4.6) 07/06/24 07:20 Urine Color Yellow (Yellow) 07/06/24 07:26 Urine Appearance Clear (CLEAR) 07/06/24 07:26 Urine pH 5.5 (5-7) 07/06/24 07:26 Ur Specific [place] 1.009 (1.005-1.030) 07/06/24 07:26 Urine Protein Trace (Negative) A 07/06/24 07:26 Urine Glucose (UA) Negative (Normal) 07/06/24 07:26 Urine Ketones 1+ (Negative) H 07/06/24 07:26 Urine Blood 2+ (Negative) A 07/06/24 07:26 Urine Nitrate Negative (Negative) 07/06/24 07:26 Urine Bilirubin Negative (Negative) 07/06/24 07:26 Urine Urobilinogen 1.0 mg/dL (Negative) 07/06/24 07:26 Ur Leukocyte Esterase Negative (Negative) 07/06/24 07:26 Amorphous Sediment Not Reportable 07/06/24 07:26 Coronavirus (PCR) Negative (Negative) 07/06/24 07:10 Influenza A (PCR) Negative (Negative) 07/06/24 07:10 Influenza Type B (PCR) Negative (Negative) 07/06/24 07:10 RSV (PCR) Negative (Negative) 07/06/24 07:10 All radiology interpretation(s) finalized by discharge EKG Data EKG 1: I personally reviewed and interpreted this EKG as follows: EKG interpretation date: 07/06/24 EKG interpretation time: 07:07 Interpretation: nsr hr [address] elevation qrs 102 qtc 408 Computer generated interpretation: Chest X-Ray 07/06/24 07:03 IMPRESSION: Lung hyperinflation. Discharge Plan Discharge Patient Disposition: Home Clinical Impression: Upper respiratory infection Condition: Stable Prescriptions: No Action amoxicillin-pot clavulanate 875-125 mg tablet 1 tab PO BID 7 Days Qty: 14 0RF ibuprofen-acetaminophen [Advil Dual Action] 125-250 mg Tablet 1 tab PO Q8H PRN (Reason: Pain) Discharge Orders: Discharge ED (Routine); Ordered 07/06/24 Ordered By: Nathalia Judd Referrals: Ksenia Oakes, NUCLEAR INSTRUCTOR [Primary Care Provider] - 4-7 days Discharge Diet: Advance as tolerated Discharge Activity: Resume usual activity Patient Instructions: Upper Respiratory Infection (ED) Coding Level of Care Code ED Research Development Director for Rebecca Monroe
[2024-07-06 07:15] VITALS: BP 108/78; PULSE 73; RESP 16; TEMP 36.7; O2SAT 99
[2024-07-06 07:22] VITALS: O2SAT 97
[2024-07-06 07:29] LABS: Basophils % 0.2 %; Eosinophils % 0.3 %; Hematocrit 40.4 % (36-47); Lymphocytes # 1.4 10^3/uL (0.8-4.8); Lymphocytes % 11.8 %; Mean Corpuscular HGB Conc 33.4 g/dL (30-55); Mean Corpuscular Hemoglobin 31.6 pg (27-33); Mean Corpuscular Volume 94.6 fl (85-98); Mean Platelet Volume 9.9 fL (7.4-10.4); Monocytes # 0.7 10^3/uL (0.2-0.9); Monocytes % 5.7 %; Neutrophils # 9.84 10^3/uL (1.8-7.7); Neutrophils % 81.4 %; Nucleated Red Blood Cells % 0 %; Platelet Count 241 10^3/cmm (157-399); Red Blood Count 4.27 10^6/uL (3.85-5.65); Red Cell Distribution Width 11.9 % (12.1-15.1); White Blood Count 12.09 10^3/uL (3.29-11.43)
[2024-07-06] MEDS: ketorolac 30 mg/mL INJ 15 MG IVP (07:29)
[2024-07-06] MEDS: dexamethasone 10 mg/mL INJ IVP (07:29)
[2024-07-06 07:48] LABS: Alanine Aminotransferase 7 U/L (0-33); Albumin Level 4.2 g/dL (3.5-5.2); Alkaline Phosphatase 94 U/L (35-105); Anion Gap 14.3 (5-19); Aspartate Amino Transferase 11 U/L (0-32); Blood Urea Nitrogen 7 mg/dL (6-20); Calcium 8.2 mg/dL (8.5-10.5); Carbon Dioxide 24 mmol/L (22-29); Chloride 101 mmol/L (98-107); Globulin 3.1 g/dL (1.3-4.6); Glomerular Filtration Rate 90.9 mL/min (90-130); Glucose 138 mg/dL (65-115); Osmolality Calculated 282 mOsm/kg (285-295); Potassium 3.3 mmol/L (3.5-5.1); Sodium 136 mmol/L (136-145); Total Bilirubin 0.5 mg/dL (0.15-1.2); Total Protein 7.3 g/dL (6.6-8.7)
[2024-07-06 07:50] LABS: Bilirubin Urine Negative (Negative); Blood Urine 2+ (Negative); Glucose Urine UA Negative (Normal); Ketones Urine 1+ (Negative); Leukocyte Esterase Urine Negative (Negative); Nitrate Urine Negative (Negative); Protein Urine Trace (Negative); Specific Gravity, Urine 1.009 (1.005-1.030); Urine Appearance Clear (CLEAR); Urine Color Yellow (Yellow); pH Urine 5.5 (5-7)
[2024-07-06 08:05] LABS: Covid PCR NEGATIVE (Negative); Influenza A NEGATIVE (Negative); Influenza B NEGATIVE (Negative); Respiratory Syncytial Virus Ce NEGATIVE (Negative)
[2024-07-06 08:13] LABS: UA Manual Slide Review YES; UA Slide Review UA Slide Review Perf
[2024-07-06] MEDS: albuterol 8 gm MDI 2 PUFF INHALATION (08:14)
[2024-07-06 08:15] VITALS: PULSE 66; RESP 18; O2SAT 97
[2024-07-06 08:15] LABS: Add Urine Culture? No; Add Urine Microscopic? YES; Bacteria Urine TRACE /hpf; Mucus Urine TRACE /hpf; Squamous Epithelial Cell Urine 15-25 /hpf (0-5)
[2024-07-06 08:25] VITALS: BP 109/54; PULSE 69; O2SAT 97
== END 2024-07-06 08:27 | disposition home or self-care (01) ==
PROVIDERS: Emergency Provider Emergency Medicine; PCP Nurse Practitioner Family
DX: J06.9 Acute upper respiratory infection, unspecified (principal); Z11.52 Encounter for screening for COVID-19
CPT/HCPCS: 0241U; 71045; 80053; 81001; 85025; 93005; 94640; 96374; 96375; 99285; J1100; J1885; J3535